=== PATIENT | female | born 1980 | race African-American/Black ===

== ENCOUNTER 2022-11-23 12:31 | Emergency (ER) | payer SELFPAY ==
[2022-11-23 13:02] LABS: #Basophils 0.1 thou/uL (0.0-0.2); #Eosinphils 0.2 thou/uL (0.0-0.7); #Lymphocytes 1.6 thou/uL (1.20-3.40); #Monocytes 0.3 thou/uL (0.11-0.59); #Neutrophils 2.4 thou/uL (1.40-6.50); %Basophils 1.5 % (0.0-1.0); %Eosinophils 3.6 % (0.0-10.0); %Lymphocytes 34.8 % (21.0-51.0); %Monocytes 7.4 % (0.0-10.0); %Neutrophils 52.8 % (42.0-75.0); Hematocrit 39.7 % (36.0-47.0); Hemoglobin 12.2 g/dL (12.0-16.0); Mean Corpuscular HGB CONC 30.8 g/dL (32.0-36.0); Mean Corpuscular Hemoglobin 27.4 pg (27.0-31.0); Mean Platelet Volume 4.8 fL (7.4-10.4); Platelet Count 338 10x3/uL (130-400); RBC Distribution Width 11.8 % (11.5-14.5); Red Blood Cell (RBC) Count 4.46 mill/uL (4.20-5.40); White Blood Cell (WBC) Count 4.5 10x3/uL (4.8-10.8)
[2022-11-23 13:20] LABS: ALT (SGPT) 19 U/L (8-55); AST (SGOT) 17 U/L (5-34); Albumin 3.9 g/dL (3.5-5.0); Alkaline Phosphatase 63 U/L (40-110); Anion Gap 14 mmol/L (10-20); BUN (Urea Nitrogen) 14 mg/dL (7.0-18.7); Bilirubin, Total 0.3 mg/dL (0.2-1.2); Calc. Creatinine Clearance 0 mL/min (70-130); Calcium 8.8 mg/dL (7.8-10.44); Carbon Dioxide 23 mmol/L (22-29); Chloride 106 mmol/L (98-107); Estimated GFR 95; Globulin 3.5 g/dL (2.4-3.5); Glucose 74 mg/dL (70-105); Potassium 3.6 mmol/L (3.5-5.1); Protein, Total 7.4 g/dL (6.0-8.3); Sodium 139 mmol/L (136-145)
[2022-11-23 13:22] LABS: Troponin I 0.012 ng/mL (< 0.028)
== END 2022-11-23 14:51 | disposition home or self-care (01) ==
LOC: BURERS 12:31
DX: R07.89 Other chest pain (principal); I10 Essential (primary) hypertension
CPT/HCPCS: 71045; 80053; 84484; 85025; 93005

== ENCOUNTER 2024-01-06 01:22 | Emergency (ER) | payer OTHER ==
[2024-01-06] MEDS ORDERED: Bupivacaine 0.5% 10 ML VIAL ONE (02:16)
[2024-01-06] MEDS ORDERED: Penicillin V Potassium 250 MG TAB ONE (02:23)
== END 2024-01-06 02:31 | disposition home or self-care (01) ==
LOC: BURERS 01:22
DX: K04.7 Periapical abscess without sinus (principal); L03.211 Cellulitis of face; I10 Essential (primary) hypertension
CPT/HCPCS: 64400; J3490

== ENCOUNTER 2024-02-13 18:11 | Emergency (ER) | payer OTHER ==
[2024-02-13] MEDS ORDERED: predniSONE 20 MG TAB ONE (18:34)
[2024-02-13] MEDS ORDERED: Dicyclomine 20 MG TAB ONE (18:34)
== END 2024-02-13 18:40 | disposition home or self-care (01) ==
LOC: BURERS 18:11
DX: B34.9 Viral infection, unspecified (principal); J06.9 Acute upper respiratory infection, unspecified; R19.7 Diarrhea, unspecified; I10 Essential (primary) hypertension; Z79.899 Other long term (current) drug therapy
CPT/HCPCS: 99283; J7512